=== PATIENT | male | born 2000 | race Caucasian/White ===

== ENCOUNTER → 2025-03-10 | Day surgery (SDC) | payer BC ==
[2025-03-02 09:15] LABS: BASOPHILS % 0.6 % (0.0-1.0); EOSINOPHILS % 2.6 % (0.0-6.0); LYMPHOCYTES % 27.2 % (18.0-39.1); MONOCYTES % 7.5 % (4.4-11.3); NEUTROPHILS % 61.8 % (38.7-80.0); RED CELL DISTRIBUTION WIDTH 13.4 % (11.7-14.4)
[2025-03-02 09:48] LABS: EST GLOMERULAR FILTRATION RATE 124.0 ML/MIN (>=60)
[~2025-03-10] MED LIST: ACETAMINOPHEN 1000 MG/100 ML 100 ML IV ONE; AMIODARONE HCL INJ 150MG/3ML ONE; FENTANYL CITRATE/PF 100MCG/2 ML INJ ONE; KETOROLAC TROMETHAMINE 30 MG/ML VIAL ONE; LIDOCAINE HCL 2% LOCAL INJ 5 ML SDV VIAL INJ ONE; MIDAZOLAM HCL 2 MG/2 ML VIAL ONE; Morphine 10mg syringe 10 MG/ML INJ ONE; PROPOFOL IV EMULSION 10 MG/ML 20 ML VIAL ONE; ROCURONIUM BROMIDE 1 ML IV ONE; SEVOFLURANE INHAL SOLN 250 ML PEN BTL ONE; SUGAMMADEX SODIUM 200 MG/2 ML VIAL IV ONE
[2025-03-10] MEDS: LACTATED RINGER'S 1,000 ML ONE (07:36)
[2025-03-10 10:52] VITALS: TEMP 97.2
[2025-03-10 11:45] VITALS: BP 141/93; PULSE 82; RESP 16; O2SAT 95
== END | disposition home or self-care (01) ==
LOC: OR 06:29
PROVIDERS: ATTEND Surgery
DX: L05.91 Pilonidal cyst without abscess (principal); E66.9 Obesity, unspecified; Z01.812 Encounter for preprocedural laboratory examination
CPT/HCPCS: 36415; 80053; 85025; 88304; J0690; J1885; J2003; J2250; J2270